=== PATIENT | female | born 1975 | race African-American/Black ===

== ENCOUNTER 2016-11-29 15:15 | Inpatient (IN) | payer OTHER ==
[~2016-11-29] VITALS: Ht 160 cm; Wt 84.0 kg
[2016-11-29] VITALS (15 sets, daily range): BP systolic 107–155; BP diastolic 59–93
[2016-11-29] MEDS ORDERED: PENICILLIN G POTASSIUM IV 5 MU in D5W MINI-BAG PLUS 100 ML IV STA (20:24)
[2016-11-29] MEDS ORDERED: LACTATED RINGER'S 1000 ML IV ONE (20:30)
[2016-11-29] MEDS ORDERED: OXYTOCIN DRIP 30 UNITS in APPROPRIATE DILUENT 1 EA IV SCH (20:30)
[2016-11-29 20:58] LABS: MEAN CORPUSCULAR HGB CONC 30.2 g/dl (32.0-36.5); MEAN CORPUSCULAR VOLUME 69.7 fl (80.0-96.0); RED CELL DISTRIBUTION WIDTH 18.9 % (11.5-14.5); WHITE BLOOD COUNT 11.5 K/mm3 (4.0-10.0)
[2016-11-29] MEDS ORDERED: LR 1,000 ML IV SCH (21:00)
[2016-11-29] MEDS ORDERED: FENTANYL 2MCG/ML ROPIVACAINE 0.2% IN 0.9% NACL 200ML IVBAG As Ordered ONE (22:55)
[2016-11-29] MEDS ORDERED: ePHEDrine SULFATE 25 MG/5 ML(5MG/ML) SYRINGE IV PRN (23:45)
[2016-11-29] MEDS ORDERED: NALOXONE INJ 0.4 MG/1 ML VIAL (J2310) IV PRN (23:45)
[2016-11-29] MEDS ORDERED: REFRIGERATOR IV KEYS XX PRN (23:45)
[2016-11-29] MEDS ORDERED: LACTATED RINGER'S 1000 ML IV PRN (23:45)
[2016-11-29] MEDS ORDERED: ONDANSETRON 4MG/2ML VIAL (J2405) IV PRN (23:45)
[2016-11-29] MEDS ORDERED: EPIDURAL COMMENT XX SCH (23:45)
[2016-11-29] MEDS ORDERED: FENTANYL/ROPIVACAINE/NACL BAG 200 ML EPIDURAL SCH (23:45)
[2016-11-29] MEDS ORDERED: EPIDURAL/PCA KEYS XX PRN (23:45)
[2016-11-29] MEDS ORDERED: diphenhydrAMINE INJ 50MG/ML VIAL (J1200) IV PRN (23:45)
[2016-11-30] VITALS (14 sets, daily range): BP systolic 90–130; BP diastolic 53–66
[2016-11-30] MEDS ORDERED: PENICILLIN G POTASSIUM IV 2.5 MU in D5W 100 ML IV SCH (01:00)
[2016-11-30] MEDS ORDERED: ANUSOL HC CREAM 30GM TOP PRN (02:45)
[2016-11-30] MEDS ORDERED: RHOGAM 300 MCG (1500 IU) INJ (J2790) IM SCH (02:45)
[2016-11-30] MEDS ORDERED: MEASLES,MUMPS,RUBELLA VACCINE INJ (MMR-II) (90707) SC SCH (02:45)
[2016-11-30] MEDS ORDERED: METHYLERGONOVINE MALEATE 0.2 MG TAB PO PRN (02:45)
[2016-11-30] MEDS ORDERED: MOM 30ML SUSPENSION UDC PO PRN (02:45)
[2016-11-30] MEDS ORDERED: DIBUCAINE 1% OINTMENT 30GM TOP PRN (02:45)
[2016-11-30 02:50] LABS: CORD GAS ABE A -3.7; CORD GAS HCO3 A 27.7 MEQ/L; CORD GAS O2 SAT A 23.2 %; CORD GAS PH A 7.158 UNITS; CORD GAS PO2 A 18.4 mmHg; CORD GAS SBC A 19.5 MEQ/L; CORD GAS TCO2 A 30.2 MEQ/L
[2016-11-30 02:53] LABS: CORD GAS ABE V -3.4; CORD GAS HCO3 V 23.4 MEQ/L; CORD GAS O2 SAT V 66.3 %; CORD GAS PCO2 V 47.8 mmHg; CORD GAS PH V 7.307 UNITS; CORD GAS PO2 V 31.6 mmHg; CORD GAS SBC V 20.8 MEQ/L; CORD GAS TCO2 V 24.8 MEQ/L
[2016-11-30] MEDS: IBUPROFEN 800 MG TAB PO PRN ×2 (07:40→18:14)
[2016-11-30] MEDS: PRENATAL VITAMINS CHEWABLE TABLET PO SCH (07:40)
[2016-11-30] MEDS: DOCUSATE SODIUM 100 MG CAP PO PRN (07:42)
--- NOTE | 2016-11-30 13:16 | REP ---
BIOPHYSICAL PROFILE OB ULTRASOUND: 11/29/2016. I have no prior studies. Established due date, 37 weeks 4 days with EDC 12/16/2016. Clinical history: Abnormal nonstress test. Evaluate well-being There is a single intrauterine gestation in vertex position. skull shadows the cervix and is not able to be measured. Amniotic fluid volume is subjectively towards the lower end of normal range. The index is 8.2 cm with a normal range 7.4 - 24.1. Largest of three fluid pockets visible is 3.7 cm. Mid cord umbilical artery Doppler shows S/D ratio 1.99 with normal forward diastolic flow. Resistive index of 0.5. Anterior grade 3 placenta is noted without previa or abruption. The cord is draped over the neck, a nuchal cord cannot entirely be excluded. heart rate 124 and regular. Biophysical profile: Breathing 2 Tone 0 Movement 0 AFV 2 Impression: 1. Single intrauterine gestation in vertex position with subjectively low normal amniotic fluid volume, but a normal index of 8.2. 2. Anterior grade 3 placenta without previa abruption. 3. Cord Doppler S/D ratio 1.99 and forward diastolic flow. 4. Heart rate 124 and regular. 5. Biophysical profile score 4/8. 0 points for tone and movement. Findings sent to Marguerite Ayala and phone call placed to Dr. Mendoza, with discussion at time of dictation. Signed by Ariel Bailey MD 11/30/2016 09:02 A
[2016-11-30] MEDS: ACETAMINOPHEN 500 MG TAB PO PRN (20:45)
[2016-12-01 05:39] VITALS: BP 120/57
[2016-12-01 07:00] LABS: MEAN CORPUSCULAR HEMOGLOBIN 21.2 pg (27.0-33.0); MEAN CORPUSCULAR HGB CONC 30.1 g/dl (32.0-36.5); MEAN CORPUSCULAR VOLUME 70.2 fl (80.0-96.0); RED CELL DISTRIBUTION WIDTH 19.4 % (11.5-14.5); WHITE BLOOD COUNT 14.2 K/mm3 (4.0-10.0)
[2016-12-01] MEDS: DOCUSATE SODIUM 100 MG CAP PO PRN (07:33)
[2016-12-01] MEDS: IBUPROFEN 800 MG TAB PO PRN (07:33)
[2016-12-01] MEDS: PRENATAL VITAMINS CHEWABLE TABLET PO SCH (07:33)
--- NOTE | 2016-12-01 10:12 | HPE ---
DATE OF ADMISSION: 11/29/2016 This is a 41-year-old, 5, para 3, abortio 1, last menstrual period (LMP) 03/11/2016, expected date of confinement (EDC) 12/16/2016, at 37 and 5/7 weeks of gestation with a history of contractions every 5 to 7 minutes apart, moderate intensity. She had no change in her cervix over the last 4 hours, but she had a non-reassuring heart strip. Her risk factors is she is 41 years of age, advanced maternal age (AMA). She has had surgical intervention on her uterus in 2017 and it is an IVF . She had one hour elevated glucose, three hour GTT was normal. Her body mass index (BMI) is 31. PAST HISTORY: In 1992, at 37 weeks, male, spontaneous vaginal delivery, 5 pounds 13 ounces. In 1997, at 40 weeks, male, spontaneous vaginal delivery, 7 pounds 3 ounces. In 2010, at 40 weeks, female, spontaneous vaginal delivery, 7 pounds 11 ounces. In 2000, at 6 weeks, had a D and C. On examination, she appears distressed with contractions. The nonstress is non-reassuring over three hours. Vertex presenting, -3, 1 cm, posterior. Blood pressure is 135/75, respirations 18, pulse 90, and temperature 98.5. Urine 1.005, pH 6, negative, with trace of protein. LABS: O positive. HIV negative. Hepatitis negative. RPR negative. Rubella immune. GBS positive. Varicella immune. Pap normal. Urine negative. Gonorrhea and Chlamydia were negative. One hour glucose initial was 128. Her 28 week GTT was 135. Her three hour GTT showed 160/150/134. CF was negative. Quad screen, I have no results at the present time. Our plan of management is to hydrate the patient, do biophysical profile, and reassess after that regarding either monitoring extensively or repeating the NST and the biophysical profile in 24 hours or accelerate to delivery. The rest of the examination is unremarkable. She is normocephalic, atraumatic. Neck with full range of motion. Pupils equal and reactive to light. Chest is clear bilaterally at bases. No wheezes or rhonchi. No costovertebral angle (CVA) tenderness. Distal pulses symmetric. Uterus is gravid, appropriate symphysis fundus height. Four quadrant bowel sounds. There is relaxation between contractions. No rashes, lesions, or pruritus. No arthralgia, myalgia. No complaints of cough, wheeze, shortness of breath, or dyspnea on exertion. No chest pain. Not bleeding. Neuro complete. No urgency or frequency. No incontinence. No nausea, vomiting, diarrhea or constipation. Diabetic issues addressed. FACTORY CLERK HISTORY: She has had septum removed from her uterus. PAST MEDICAL HISTORY: Unremarkable. SURGICAL HISTORY: Septum removed from her uterus. FAMILY HISTORY: Noncontributory. She does not smoke or drink or abuse drugs. . There is no domestic violence. In summary, we have a 37 and 5 week, AMA, with contractions and a non-reassuring heart for further investigations.
[2016-12-01] MEDS ORDERED: COLA100C5 PO (12:37)
[2016-12-01] MEDS ORDERED: PRENTAB55 PO (12:37)
[2016-12-01] MEDS ORDERED: TYLE325T5 PO (12:37)
[2016-12-01] MEDS ORDERED: MOTR200T44 PO (12:37)
[2016-12-01] MEDS: ACETAMINOPHEN 500 MG TAB PO PRN (13:53)
--- NOTE | 2016-12-01 21:19 | IPN ---
DATE: 11/30/2016 This patient has requested circumcision of their male infant. After discussing his the risks and benefits of circumcision, the medical and nonmedical indications, penile block, and aftercare, expressed understanding of penile block and aftercare, signed and witnessed the consent form. We await the clearance by the glassblower.
--- NOTE | 2016-12-02 00:48 | DN ---
DATE OF SERVICE: 11/30/2016 This lady is advanced maternal age 5, para 3 admitted because of a non-reassuring NST and a biophysical profile of 4/8 and jena. We went ahead and augmented with Pitocin, starting off with a contraction stress test which was negative and eventually she dilated up significantly for an epidural in place. She is group B Streptococcus (GBS) positive, was prophylactically treated and artificial rupture of membranes (AROM) at 6-7 cm, large blood clot was retrieved suggesting an abruptio placenta concealed. She rapidly got to full dilatation, two pushes, delivered a live male weighing 6 pounds 0 ounces, 2710 grams, scores of 9 and 9 at one and five minutes respectively. Arterial and venous pH was performed. Placenta delivered spontaneously thereafter, appeared to be a grade 3 placenta with calcifications and evidence of concealed abruption. Placenta was complete three vessels, very thin cord which suggests the baby was not moving or breathing or on tone because of the decreased amount of thickness in the cord. The uterus contracted well on Pitocin. The anterior and posterior lateral scott were noted to be normal. Sphincter was tight and mucosa was intact. Uterus contracted well on Pitocin. The patient and baby tolerating procedure well, we have a 37 and 5 weeks of gestation, spontaneous active labor, abruptio placenta, delivered a live male .
== END 2016-12-01 14:00 | disposition home or self-care (01) | DRG 774 ==
LOC: M LDO 15:15 → M LDI 20:25 → M OBS 11-30 04:40
PROVIDERS: ADMIT Obstetrics & Gynecology; ATTEND Obstetrics & Gynecology
PROC: 10E0XZZ Delivery of Products of Conception, External Approach (ICD-10-PCS; principal; 2016-11-30)
PROC: 10907ZC Drainage of Amniotic Fluid, Therapeutic from Products of Conception, Via Natural or Artificial Opening (ICD-10-PCS; 2016-11-30)
DX: O76 Abnormality in fetal heart rate and rhythm complicating labor and delivery (principal); O45.93 Premature separation of placenta, unspecified, third trimester; Z3A.37 37 weeks gestation of pregnancy; O99.824 Streptococcus B carrier state complicating childbirth; Z37.0 Single live birth; O99.214 Obesity complicating childbirth; E66.9 Obesity, unspecified; Z68.31 Body mass index [BMI] 31.0-31.9, adult; O99.02 Anemia complicating childbirth; D50.9 Iron deficiency anemia, unspecified

== ENCOUNTER 2017-04-25 10:37 | Day surgery (SDC) | payer OTHER ==
[2017-04-25] MEDS ORDERED: LIDOCAINE 2% INJ 100 MG/5 ML SDV (FOR ANES.) As Ordered ×2 (10:46)
[2017-04-25] MEDS ORDERED: dexameTHASONE 4 MG/ML 1ML VIAL (J1100) As Ordered ×2 (10:46)
[2017-04-25] MEDS ORDERED: ONDANSETRON 4MG/2ML VIAL (J2405) As Ordered ×2 (10:46)
[2017-04-25] MEDS ORDERED: PROPOFOL 200 MG/20 ML VIAL As Ordered ×2 (10:46)
[2017-04-25] MEDS ORDERED: MIDAZOLAM INJ 2 MG/2 ML VIAL (J2250) As Ordered ×2 (10:47)
[2017-04-25] MEDS ORDERED: fentaNYL 100 MCG/2 ML INJECTION (J3010) As Ordered ×2 (10:47)
[2017-04-25] MEDS ORDERED: LIDOCAINE 1% MDV 20ML VIAL SQ ×2 (11:00)
[2017-04-25] MEDS: LR 1,000 ML IV ×2 (11:11)
[2017-04-25 11:21] LABS: CONTROL LINE UCG INT CTR LINE PRESENT; URINE PREG TEST NEGATIVE (NEGATIVE)
[2017-04-25] MEDS: BUPIVACAINE HCL 0.5% 10 ML VIAL As Ordered ×2 (14:20)
[2017-04-25] MEDS: LIDOCAINE 1% MDV 20ML VIAL As Ordered ×2 (14:20)
[2017-04-25] MEDS: dexameTHASONE 4 MG/ML 1ML VIAL (J1100) As Ordered ×2 (14:56)
[2017-04-25] MEDS ORDERED: ONDANSETRON 4MG/2ML VIAL (J2405) IV ×2 (15:30)
[2017-04-25] MEDS ORDERED: PERCOCET 5MG/325MG TAB PO ×2 (15:30)
[2017-04-25] MEDS ORDERED: LR 1,000 ML IV ×2 (15:30)
== END 2017-04-25 18:30 | disposition home or self-care (01) ==
LOC: M SDC 10:37
DX: M20.11 Hallux valgus (acquired), right foot (principal); D21.9 Benign neoplasm of connective and other soft tissue, unspecified; R06.83 Snoring
CPT/HCPCS: 28296

== ENCOUNTER → 2018-12-27 | Outpatient (REF) | payer OTHER ==
[~2018-12-27] MED LIST: COLA100C5 PO; HYDR-3713 PO; MOTR200T44 PO; PRENTAB55 PO; TYLE325T5 PO
[2018-12-28 07:32] LABS: CHLAMYDIA DNA AMPLIFICATION NEGATIVE (NEGATIVE); GC DNA AMPLIFICATION NEGATIVE (NEGATIVE)
== END ==
LOC: M SFHCLERA 18:17
PROVIDERS: ATTEND Nurse Practitioner Family
DX: N89.8 Other specified noninflammatory disorders of vagina (principal)

== ENCOUNTER → 2019-01-17 | Outpatient (REF) | payer OTHER ==
[2019-01-17 21:26] LABS: CHLAMYDIA DNA AMPLIFICATION NEGATIVE (NEGATIVE); GC DNA AMPLIFICATION NEGATIVE (NEGATIVE)
== END ==
LOC: M LAB REF 16:48
PROVIDERS: ATTEND Obstetrics & Gynecology
DX: Z11.3 Encounter for screening for infections with a predominantly sexual mode of transmission (principal)

== ENCOUNTER → 2019-01-18 | Outpatient (CLI) | payer OTHER | LOC: M RAD 10:28 | PROVIDERS: ATTEND Obstetrics & Gynecology | DX: Z12.31 Encounter for screening mammogram for malignant neoplasm of breast (principal) ==

== ENCOUNTER → 2019-02-17 | Outpatient (REF) | payer OTHER | LOC: M LAB REF 19:55 | PROVIDERS: ATTEND Obstetrics & Gynecology | DX: Z12.4 Encounter for screening for malignant neoplasm of cervix (principal) ==

== ENCOUNTER → 2019-02-28 | Outpatient (CLI) | payer OTHER ==
--- NOTE | 2019-02-28 13:08 | REP ---
Pelvic sonography: History: Pelvic and perineal pain. Findings: Transabdominal and transvaginal scanning are performed. Uterus is elongate and somewhat heterogeneous measuring 11.3 x 5.4 x 7.6 cm. Endometrial echo is 0.7 cm thick. Uterus is anteverted. There are three identifiable fibroids including a 2.6 cm fibroid in the fundus, a calcified 1.1 cm fibroid in the right uterine myometrium and a calcified 1.5 cm fibroid in the right as well. Normal ovaries are seen bilaterally. No free fluid is seen. Right ovary dimensions are 2.2 x 1.2 x 2.4 cm. Left ovary measures 1.8 x 1.2 x 1.2 cm. Impression: Enlarged fibroid uterus. Otherwise negative. Unreviewed
== END ==
LOC: M RAD 08:51
PROVIDERS: ATTEND Obstetrics & Gynecology
DX: R10.2 Pelvic and perineal pain (principal)

== ENCOUNTER → 2019-05-17 | Outpatient (CLI) | payer OTHER ==
--- NOTE | 2019-05-17 11:47 | REP ---
PA and lateral chest: There are no comparisons. The lung nielson are clear. The cardiac size is normal. The jignesh, mediastinum, and skeletal structures are unremarkable. Impression: Negative PA and lateral chest. Electronically Signed by Fortino Lopez MD 05/17/2019 11:38 A
== END ==
LOC: M LRY 11:14
PROVIDERS: ATTEND Nurse Practitioner Family
DX: R05 Cough (principal)
CPT/HCPCS: 71046; G0463

== ENCOUNTER → 2019-06-05 | Outpatient (REF) | payer OTHER ==
[2019-06-05 18:23] LABS: CHLAMYDIA DNA AMPLIFICATION NEGATIVE (NEGATIVE); GC DNA AMPLIFICATION NEGATIVE (NEGATIVE)
== END ==
LOC: M SFHCLERA 10:24
PROVIDERS: ATTEND Nurse Practitioner Family
DX: N89.8 Other specified noninflammatory disorders of vagina (principal)
CPT/HCPCS: 81002; 81025; 87086; 87661; G0463